=== PATIENT | female | born 1965 | race Caucasian/White ===

== ENCOUNTER 2016-10-11 22:57 | Emergency (ER) | payer OTHER ==
[~2016-10-11] VITALS: Ht 170.2 cm; Wt 105.3 kg
[~2016-10-11 22:57] MED LIST: ACET325T26 PO; ASPI-621 PO; ATOR20TA9 PO; CARV6.252 PO; HYDR-3240 PO; LANS15CA PO; LISI-170 PO; LISI2.5T PO; LORA10TA75 PO; MELA1TAB19 SL; METF500T4 PO; TRAZ100T15 PO
[2016-10-11 22:58] VITALS: BP 164/104
[2016-10-11] MEDS ORDERED: CLINDAMYCIN 150 MG CAPSULE PO ONE (23:30)
== END 2016-10-12 | disposition home or self-care (01) ==
LOC: ED 23:58
DX: L02.416 Cutaneous abscess of left lower limb (principal); L03.116 Cellulitis of left lower limb; E11.9 Type 2 diabetes mellitus without complications; I10 Essential (primary) hypertension; E78.5 Hyperlipidemia, unspecified; K21.9 Gastro-esophageal reflux disease without esophagitis; Z90.710 Acquired absence of both cervix and uterus; Z90.49 Acquired absence of other specified parts of digestive tract; Z88.0 Allergy status to penicillin
CPT/HCPCS: 99284